=== PATIENT | female | born 1995 | race Hispanic/Latino ===

== ENCOUNTER 2024-06-10 17:29 | Emergency (ER) | payer SELFPAY ==
[~2024-06-10] VITALS: Ht 152.4 cm; Wt 77.1 kg
[2024-06-10 18:30] VITALS: PULSE 104; RESP 16; TEMP 98.6
[2024-06-10] MEDS ORDERED: ULTRAM 50MG50 MG PO (22:05)
[2024-06-10 23:34] VITALS: BP 128/74; PULSE 106; RESP 17; TEMP 98.9; O2SAT 100
== END 2024-06-10 22:05 | disposition home or self-care (01) ==
LOC: ER 17:38
DX: R51.9 Headache, unspecified (principal); M25.551 Pain in right hip; M25.561 Pain in right knee; V73.5XXA Driver of bus injured in collision with car, pick-up truck or van in traffic accident, initial encounter; Y92.488 Other paved roadways as the place of occurrence of the external cause
CPT/HCPCS: 70450; 72125; 81025; 99284